=== PATIENT | female | born 1980 | race Caucasian/White ===

== ENCOUNTER 2018-04-22 07:34 | Day surgery (SDC) | payer OTHER ==
[2018-04-22] MEDS ORDERED: ENOXAPARIN SODIUM 40 MG/0.4 ML DISP.SYRIN SQ ONE (07:59)
[2018-04-22] MEDS ORDERED: SCOPOLAMINE HYDROBROMIDE 1.5MG/72HR PATCH TD ONE ×2 (07:59→08:48)
[2018-04-22] MEDS ORDERED: LACTATED RINGERS 1,000 ML IV ONE (08:00)
[2018-04-22] MEDS ORDERED: FAMOTIDINE/PF 20 MG/2 ML VIAL ONE ×2 (08:00→08:48)
[2018-04-22] MEDS ORDERED: PROPOFOL 200 MG/20 ML VIAL IV ONE (08:48)
[2018-04-22] MEDS ORDERED: DEXAMETHASONE SOD PHOS 4 MG/ML VIAL ONE (08:48)
[2018-04-22] MEDS ORDERED: SUGAMMADEX 200 mg/2mL 200 MG/2 ML VIAL IV ONE (08:48)
[2018-04-22] MEDS ORDERED: SEVOFLURANE 250 ML LIQUID IH ONE (08:48)
[2018-04-22] MEDS ORDERED: ACETAMINOPHEN 1,000 MG/100 ML INJ IV ONE (08:48)
[2018-04-22] MEDS ORDERED: ceFAZolin SODIUM 1 GM VIAL ONE (08:48)
[2018-04-22] MEDS ORDERED: LIDOCAINE HCL/PF 2% 100 MG/5 ML VIAL IJ ONE (08:48)
[2018-04-22] MEDS ORDERED: LABETALOL HCL 20 MG/4 ML SYRINGE IV ONE (08:48)
[2018-04-22] MEDS ORDERED: ROCURONIUM BROMIDE 10 MG/ML 5ML VIAL ONE (08:48)
[2018-04-22] MEDS ORDERED: FENTANYL 250MCG/5ML VIAL ONE (08:48)
[2018-04-22] MEDS ORDERED: ONDANSETRON HCL/PF 4 MG/ 2ML VIAL ONE (08:48)
[2018-04-22] MEDS ORDERED: PROMETHAZINE HCL 25 MG/ML VIAL ONE (08:48)
[2018-04-22] MEDS ORDERED: LACTATED RINGERS 1,000 ML IV.SOLN IV ONE (08:48)
[2018-04-22] MEDS ORDERED: HYDROmorphone HCL/PF 1 MG/ML DISP.SYRIN ONE (08:48)
== END 2018-04-22 12:06 | disposition other institution (70) ==
LOC: OPSURG 07:34
PROVIDERS: ATTEND Surgery
DX: E66.01 Morbid (severe) obesity due to excess calories (principal); Z68.41 Body mass index [BMI] 40.0-44.9, adult; G47.30 Sleep apnea, unspecified
CPT/HCPCS: 43235; J0690; J1100; J1170; J1650; J2001; J2405; J2550; J2704; S0028; 43775; A9270-GY; J7120

== ENCOUNTER 2018-04-22 12:07 | Inpatient (IN) | payer OTHER ==
[2018-04-22] MEDS ORDERED: HYDROcodone /APAP 10/325 1 EACH TABLET PO PRN (12:16)
[2018-04-22] MEDS ORDERED: KETOROLAC TROMETHAMINE 30 MG/1ML VIAL IVP PRN (12:16)
[2018-04-22] MEDS ORDERED: MORPHINE SULFATE 4 MG/ML PREFILLED SYR IVP PRN (12:16)
[2018-04-22] MEDS ORDERED: PROMETHAZINE HCL 25 MG in 0.9 % SODIUM CHLORIDE 50 ML IV PRN (12:16)
[2018-04-22] MEDS ORDERED: LEVALBUTEROL HCL 1.25 MG/3 ML AMPUL.NEB NEB PRN (12:22)
[2018-04-22] MEDS: ENOXAPARIN SODIUM 40 MG/0.4 ML DISP.SYRIN SQ SCH (12:36)
--- NOTE | 2018-04-22 13:18 | History and Physical Report ---
History of Present Illnes - History of Present Illness Reason for Visit: S/P Gastric Sleeve History of Present Illness: Patient is a 38-year-old white female with a BMI > 44.9 who has tried multiple diets and exercises with no benefit. Patient states that she would gain most of her weight after she had her son and daughter- she has a history of methamphetamine abuse and states she also used it for weight loss. She has been arrested in the past for drug use. She also struggles with depression and finds comfort in carbs including lots of soda. Is was decided between her and her surgeon that they would provide with Gastric Sleeve. Patient was cleared by Psychology in August 2017- She was cleared by Cardiology in December 2017 with an Ejection Fraction of 65%. Patient is being admitted today s/p gastric sleeve procedure that went well with no complications. Patient will be admitted for post surgical monitoring. - Past Medical History Cardiac: HTN, Hyperlipidemia Pulmonary: Asthma, Sleep Apnea. denies: COPD [employer]: denies: CVA, Seizure Gastrointestinal: GERD Heme/Onc: denies: Anemia NOS, Iron deficiency anemia Hepatobiliary: Hep A/B/C (Hep B) Psych: Anxiety, Depression Musculoskeletal: Chronic low back pain Rheumatologic: denies: Fibromyalgia Infectious Disease: Gonorrhea ENT: denies: Sinusitis Renal/: denies: Chronic renal insuff, Acute renal failure Endocrine: Diabetes, obesity Dermatology: Other (chronic idiopathic urticaria with angioedema) Grav: 2 Para: 2 Ab: 0 - Past Surgical History Past Surgical History: Cholecystectomy, Tonsillectomy, Other (ankle- hardware abscess) - Past Family History Mother Family History: Hypertension, Other (asthma) - Past Social History Smoke: Quit (2016) Alcohol: None Drugs: Other (used last summer) Lives: With Family Domestic Violence: Negative - Health Maintenance Health Maintenance: denies: Influenza Vaccine, HIV Influenza Vaccine: Patient Refused Pneumonia Vaccine: No Resuscitation Status: Resusciation Status Resuscitation Status Full Code - Unable to Obtain History Unable to Obtain: No Review of Systems - Review of Systems Constitutional: negative: Fever, Chills Eyes: negative: pain, vision change ENT: negative: Ear Pain, Ear Discharge, Throat Pain Respiratory: SOB with Excertion. negative: Cough, Shortness of Breath Cardiovascular: negative: Chest Pain, Palpitations, Light Headedness Gastrointestinal: Nausea, Abdominal Pain (s/p gastric sleeve). negative: Vomiting Genitourinary: negative: Dysuria Musculoskeletal: Back Pain (chronic) Skin: Other (chronic idopathic urticaria with angioedema) Neurological: negative: Confusion, Seizures - Medications/Allergies Allergies/Adverse Reactions: Allergies Allergy/AdvReac Type Severity Reaction Status Date / Time fluoxetine [From Prozac] Allergy Verified 04/22/18 12:16 lamotrigine [From Lamictal] Allergy Verified 04/22/18 12:16 naproxen Allergy Verified 04/22/18 12:16 Sulfa (Sulfonamide Allergy Verified 04/22/18 12:16 Antibiotics) tobramycin [From Tobrex] Allergy Verified 04/22/18 12:16 vancomycin Allergy Verified 04/22/18 12:16 Home Medications: Home Medications Atorvastatin Calcium [Lipitor] 40 mg PO [id number] 04/22/18 Bupropion HCl [Wellbutrin Xl] 450 mg PO [id number] 04/22/18 Buspirone HCl [BUSPAR] 22.5 mg PO BID 04/22/18 Cetirizine HCl [Zyrtec] 10 mg PO [id number] 04/22/18 Esomeprazole Magnesium [Nexium] 20 mg PO [id number] 04/22/18 Gabapentin 300 mg PO TID 04/22/18 Hydrochlorothiazide 12.5 mg PO [id number] 04/22/18 Hydroxyzine HCl 50 mg PO BID 04/22/18 Lisinopril [Prinivil] 10 mg PO [id number] 04/22/18 Metformin HCl 500 mg PO BID 04/22/18 Montelukast Sodium [Singulair] 10 mg PO [id number] 04/22/18 Multivitamin [Daily Multiple Vitamin] 1 tab PO DAILY 04/22/18 Omalizumab [Xolair] 375 mg IM MONTH 04/22/18 Ropinirole HCl 3 mg PO [id number] 04/22/18 Tizanidine HCl [Zanaflex] 4 mg PO [id number] PRN 04/22/18 Topiramate [Topamax] 50 mg PO BID 04/22/18 diphenhydrAMINE HCL [Benadryl] 50 mg PO [id number] 04/22/18 Current Inpatient Medications: Current Inpatient Medications Cefazolin Sodium/Dextrose (Cefazolin 1 G/50 Ml-Dextrose) 1 gm IV Q8H [facility] Stop: 04/23/18 01:01 Enoxaparin Sodium (Lovenox) 40 mg SQ QD [facility] Stop: 05/06/18 12:59 Last Admin: 04/22/18 12:36 Dose: Not Given Famotidine (Pepcid) 20 mg IVP BID [facility] Stop: 04/26/18 20:59 Promethazine HCl 25 mg/ Sodium (Chloride) 51 mls @ 600 mls/hr IV Q6 PRN PRN Reason: Nausea / Vomiting Stop: 04/26/18 12:15 Sodium Chloride (Normal Saline) 1,000 mls @ 150 mls/hr IV Q8H [facility] Ketorolac Tromethamine (Toradol) 30 mg IVP Q6 PRN PRN Reason: For Mild Pain Stop: 04/26/18 12:15 Levalbuterol HCl (Xopenex) 1.25 mg NEB Q6 PRN PRN Reason: Wheezing Miscellaneous (Chem Sticks) 1 each MC Q6H [facility] Morphine Sulfate () 2 mg IVP Q2 PRN PRN Reason: MODERATE PAIN Stop: 04/26/18 12:15 Ondansetron HCl (Zofran 4 Mg/2 Ml) 4 mg IVP Q6H PRN PRN Reason: Nausea / Vomiting Stop: 04/26/18 12:15 Exam - Exam Vital Signs: Vital Signs (72 hours) 04/22/18 12:33 Temperature 97.8 F Pulse Rate [ 77 Left] Respiratory 16 Rate Blood Pressure 149/80 [Left Arm] O2 Sat by Pulse 93 Oximetry General: Alert, Oriented to Person, Oriented to Place, Oriented to Time, Cooperative HEENT: Atraumatic, PERRLA, Mouth Mucous membr. moist/[place], Nose Mucous membr. moist/[place] Neck: Normal Range of Motion Lungs: Clear to auscultation, Normal air movement, Speaks full Sentences. No: Wheezes, Rales Cardiovascular: Regular rate, Normal S1, Normal S2, No murmurs Abdomen: Soft, Decreased Bowel Sounds. No: Distended, Rigid Integumentary: Normal, [place], Warm, Dry Extremities: No cyanosis, No edema, Normal pulses, No tenderness/swelling Neurological: Normal gait, Normal speech, Strength Equal Bilat, Sensation intact Psych/Mental Status: Mental status NL, Mood NL, Appropriate Affect Assessment/Plan - Assessment/Plan (1) Anxiety and depression Status: Acute Current Visit: Yes Assessment: Stable on home medications Plan: Will continue with home med (2) Asthma Status: Acute Current Visit: Yes Assessment: Stable on home meds Plan: Nebulizers ordered if needed- LCTA (3) Chronic idiopathic urticaria Status: Acute Current Visit: Yes Assessment: Will monitor- patient takes Benadryl Plan: Will give benadryl at hs (4) Hyperlipidemia Status: Acute Current Visit: Yes Qualifiers: Hyperlipidemia type: pure hypercholesterolemia Qualified Code(s): E78.00 - Pure hypercholesterolemia, unspecified; E78.0 - Pure hypercholesterolemia Assessment: Stable on home meds Plan: Will hold med during hospitalization (5) Hypertension Status: Acute Current Visit: Yes Qualifiers: Hypertension type: essential hypertension Qualified Code(s): I10 - Essential (primary) hypertension Assessment: Stable on home meds Plan: plan is to hold blood pressure medication and monitor blood pressure closely (6) Morbid obesity due to excess calories Status: Acute Current Visit: Yes Plan: S/P gastric sleeve (7) Non-insulin dependent type 2 diabetes mellitus Status: Acute Current Visit: Yes Assessment: Stable on home meds Plan: Plan is to hold diabetic meds- will get chem sticks every 6 hrs (8) Obstructive sleep apnea Status: Acute Current Visit: Yes Assessment: Stable at home with CPAP Plan: Will use CPAP (9) S/P gastric surgery Status: Acute Current Visit: Yes Assessment: Incision sites without redness/erythema, legs are without pain/tenderness, IV fluids for hydration, LCTA, minimal nausea Plan: Plan is to have patient ambulate frequently, wear SCDs while in bed, and lovenox daiy. Will give IVF until patient can tolerate PO meds, IV Pepcid for GI upset, Incentive spirometer to prevent respiratory infections, and IV pain meds and nausea- plan is to transition to oral (10) Chronic low back pain Status: Acute Current Visit: Yes Assessment: Stable on home meds Plan: Will give meds as directed VTE Assessment - RISK FACTOR SCORE VTE RISK FACTOR SCORES: OBESITY, MAJOR SURGERY/ANESTHESIA TIME > 1 HOUR (Lovenox daily, frequent ambulation, SCDs in bed)
[2018-04-22] MEDS: 0.9 % SODIUM CHLORIDE 1,000 ML IV SCH ×2 (13:35→21:03)
[2018-04-22] MEDS: ONDANSETRON HCL/PF 4 MG/ 2ML VIAL IVP PRN (14:52)
[2018-04-22] MEDS: CEFAZOLIN SODIUM/DEXTROSE,ISO 1 GM/50 ML PIGGYBACK IV SCH (18:05)
[2018-04-22] MEDS ORDERED: 0.9 % SODIUM CHLORIDE 50 ML IV ONE (19:25)
[2018-04-22 19:50] VITALS: BMI 44.9
[2018-04-22] MEDS: DIPHENHYDRAMINE HCL 25 MG/10 ML UD CUP PO SCH (21:05)
[2018-04-22] MEDS: TOPIRAMATE 50 MG TABLET PO SCH (21:06)
[2018-04-22] MEDS: BUSPIRONE HCL 5 MG TABLET PO SCH (21:06)
[2018-04-22] MEDS: FAMOTIDINE/PF 20 MG/2 ML VIAL IVP SCH (21:06)
[2018-04-22] MEDS ORDERED: oxyCODONE/ACETAMINOPHEN 5/325 TABLET PO PRN (23:24)
[2018-04-23] MEDS: CEFAZOLIN SODIUM/DEXTROSE,ISO 1 GM/50 ML PIGGYBACK IV SCH (00:19)
[2018-04-23] MEDS: 0.9 % SODIUM CHLORIDE 1,000 ML IV SCH ×2 (04:18→10:44)
[2018-04-23] MEDS ORDERED: MAG HYDROX/ALUMINUM HYD/SIMETH 30 ML UDC PO ONE ×2 (06:59→07:04)
--- NOTE | 2018-04-23 07:38 | Inpatient Progress Note ---
Subjective - Required Recertification Statement I anticipate X number of days because-include discharge plan: 1 day - Review of Systems Events since last encounter: Post Op Day #1 Patient seems to be doing well. Pain has been doing fair. Patient has had some nausea but no vomiting noted. No flatus yet. BS is stable. No hypoglycemia noted. General: Denies: Chills Cardiovascular: Denies: Chest Pain, Palpitations Gastrointestinal: Nausea. Denies: Vomiting Genitourinary: Denies: Dysuria, Frequency Objective - Exam Vitals and I&O: Vital Signs Temp 98.1 F 04/23/18 05:50 Pulse 94 H 04/23/18 06:00 Resp 20 04/23/18 06:00 BP 124/75 04/23/18 05:50 Pulse Ox 94 04/23/18 06:00 Intake & Output 04/22/18 04/22/18 04/23/18 11:59 23:59 11:59 Intake Total 1815 1230 Output Total 1800 600 Balance 15 630 Weight 137.892 kg Intake: IV 1650 1200 Right Antecubital 1650 1200 Oral 165 30 Output: Urine 1800 600 Other: Voiding Method Toilet Toilet # Voids 1 1 General: Alert, Oriented to Person, Oriented to Place, Oriented to Time, Cooperative Neck: Supple, No JVD, No thyromegaly Lungs: Clear to auscultation, Normal air movement, Speaks full Sentences Cardiovascular: Regular rate, Normal S1, Normal S2, No murmurs Abdomen: Soft, Other (mild tenderness. incisions clean and dry), Decreased Bowel Sounds Psych/Mental Status: Mental status NL, Mood NL, Intact Judgment - Results Results: Laboratory Results Urine HCG, Qual Negative (NEGATIVE) 04/22/18 08:50 Assessment/Plan - Assessment/Plan (1) Asthma Status: Chronic Current Visit: Yes Assessment: stable on home meds (2) Hypertension Status: Chronic Current Visit: Yes Qualifiers: Hypertension type: essential hypertension Qualified Code(s): I10 - Esse ntial (primary) hypertension Assessment: stable off home meds (3) Morbid obesity due to excess calories Status: Acute Current Visit: Yes Assessment: Patient encouraged to continue to walk and use her incentive spirometry. (4) Non-insulin dependent type 2 diabetes mellitus Status: Acute Current Visit: Yes Assessment: stable post op course. (5) Obstructive sleep apnea Status: Acute Current Visit: Yes Assessment: Patient using home C-PAP
[2018-04-23] MEDS ORDERED: PATIENT OWN MED 1 EACH EACH PO SCH (09:00)
[2018-04-23] MEDS: rOPINIRole HCL 1 MG TABLET PO SCH (09:21)
[2018-04-23] MEDS: BUSPIRONE HCL 5 MG TABLET PO SCH ×2 (09:21→20:54)
[2018-04-23] MEDS: TOPIRAMATE 50 MG TABLET PO SCH ×2 (09:21→20:54)
[2018-04-23] MEDS: FAMOTIDINE/PF 20 MG/2 ML VIAL IVP SCH ×2 (09:32→20:54)
[2018-04-23] MEDS: ONDANSETRON HCL/PF 4 MG/ 2ML VIAL IVP PRN ×2 (10:42→22:04)
[2018-04-23] MEDS: ENOXAPARIN SODIUM 40 MG/0.4 ML DISP.SYRIN SQ SCH (14:17)
[2018-04-23] MEDS: DIPHENHYDRAMINE HCL 25 MG/10 ML UD CUP PO SCH (20:54)
[2018-04-23] MEDS: buPROPion 150 MG TAB.ER.12H PO SCH (22:10)
[2018-04-24] MEDS: 0.9 % SODIUM CHLORIDE 1,000 ML IV SCH ×3 (00:01→11:19)
--- NOTE | 2018-04-24 08:29 | Discharge Summary ---
Discharge Summary - Discharge Sumary History of Present Illness: Patient is a 38-year-old white female with a BMI > 44.9 who has tried multiple diets and exercises with no benefit. Patient states that she would gain most of her weight after she had her son and daughter- she has a history of methamphetamine abuse and states she also used it for weight loss. She has been arrested in the past for drug use. She also struggles with depression and finds comfort in carbs including lots of soda. Is was decided between her and her surgeon that they would provide with Gastric Sleeve. Patient was cleared by Psychology in August 2017- She was cleared by Cardiology in December 2017 with an Ejection Fraction of 65%. Patient is being admitted today s/p gastric sleeve procedure that went well with no complications. Patient will be admitted for post surgical monitoring. Condition at Discharge: Stable Home Medications: Ambulatory Orders Medication Instructions Recorded Atorvastatin Calcium [Lipitor] 40 mg PO [id number] 04/22/18 Bupropion HCl [Wellbutrin Xl] 450 mg PO [id number] 04/22/18 Buspirone HCl [BUSPAR] 22.5 mg PO BID 04/22/18 Cetirizine HCl [Zyrtec] 10 mg PO [id number] 04/22/18 Esomeprazole Magnesium [Nexium] 20 mg PO [id number] 04/22/18 Gabapentin 300 mg PO TID 04/22/18 Hydrochlorothiazide 12.5 mg PO [id number] 04/22/18 Hydroxyzine HCl 50 mg PO BID 04/22/18 Lisinopril [Prinivil] 10 mg PO [id number] 04/22/18 Metformin HCl 500 mg PO BID 04/22/18 Montelukast Sodium [Singulair] 10 mg PO [id number] 04/22/18 Omalizumab [Xolair] 375 mg IM MONTH 04/22/18 Ropinirole HCl 3 mg PO [id number] 04/22/18 Tizanidine HCl [Zanaflex] 4 mg PO [id number] PRN 04/22/18 Topiramate [Topamax] 50 mg PO BID 04/22/18 diphenhydrAMINE HCL [Benadryl] 50 mg PO [id number] 04/22/18 Hydrocodone/Acetaminophen 10 ml PO Q6 PRN #250 solution 04/23/18 [Hydrocodone-Acetamn 7.5-325/15] Promethazine HCl 10 ml PO Q6 #250 syrup 04/23/18 Consultations this Visit: None Procedures this Visit: Other (s/p sleeve gastrectomy) Allergies/Adverse Reactions: Allergies Allergy/AdvReac Type Severity Reaction Status Date / Time fluoxetine [From Prozac] Allergy Verified 04/22/18 12:16 lamotrigine [From Lamictal] Allergy Verified 04/22/18 12:16 naproxen Allergy Verified 04/22/18 12:16 Sulfa (Sulfonamide Allergy Verified 04/22/18 12:16 Antibiotics) tobramycin [From Tobrex] Allergy Verified 04/22/18 12:16 vancomycin Allergy Verified 04/22/18 12:16 Patient Problems: Current Active Problems Problem Status Onset Anxiety and depression Acute Chronic idiopathic urticaria Acute Chronic low back pain Acute Hyperlipidemia Acute Morbid obesity due to excess calories Acute Non-insulin dependent type 2 diabetes mellitus Acute Obstructive sleep apnea Acute S/P gastric surgery Acute Asthma Chronic Hypertension Chronic Hospital Course: Patient did well post-op. IS, frequent ambulation, and lovenox used accordingly. Pain controlled. She did have some nausea until POD 2 that got under control. Invokana and glimiperide had been on hold at home. Will continue off these meds. Will continue metformin at home as the BS were 150's. Monitor closely. Discharged home in good condition.
[2018-04-24] MEDS: BUSPIRONE HCL 5 MG TABLET PO SCH (08:42)
[2018-04-24] MEDS: rOPINIRole HCL 1 MG TABLET PO SCH (08:43)
[2018-04-24] MEDS: TOPIRAMATE 50 MG TABLET PO SCH (08:43)
[2018-04-24] MEDS: buPROPion 150 MG TAB.ER.12H PO SCH (08:43)
[2018-04-24] MEDS ORDERED: 0.9 % SODIUM CHLORIDE 50 ML IV ONE (09:11)
[2018-04-24] MEDS: FAMOTIDINE/PF 20 MG/2 ML VIAL IVP SCH (09:15)
[2018-04-24 11:52] VITALS: BP 141/70
== END 2018-04-24 10:35 | disposition home or self-care (01) | DRG 641 ==
LOC: SOUTH 12:07
PROVIDERS: ADMIT Nurse Practitioner Family; ATTEND Nurse Practitioner Family
DX: E66.01 Morbid (severe) obesity due to excess calories (principal); Z68.41 Body mass index [BMI] 40.0-44.9, adult
CPT/HCPCS: 81025; 99222; 99231; 99238; J1650; J1885; J2270; J2405; J3490; S0028; J7030